=== PATIENT | female | born 1970 | race American Indian/Alaskan Native ===

== ENCOUNTER 2018-04-09 11:15 | Emergency (ER) | payer MEDICARE ==
[2018-04-09] MEDS ORDERED: ZOFRAN IV ONE (11:40)
[2018-04-09] MEDS ORDERED: MORPHINE IV ONE (11:41)
[2018-04-09] MEDS ORDERED: APRESOLINE IV ONE (11:42)
--- NOTE | 2018-04-09 11:46 | Emergency Department Report ---
ED Abdominal Pain HPI - General Stated Complaint: ABDOMINAL PAIN Time Seen by Provider: 04/09/18 11:40 - History of Present Illness Initial Comments: Patient is 47 years old female with history of hypertension and diabetes and left foot amputation in 2013. Patient presented to the ER complaining off diffuse abdominal pain. Patient stated that her pain is sharp in nature was no radiation. Pain associated with nausea but no vomiting. Patient denied any fever or urinary symptoms. MD Complaint: abdominal pain Location: diffuse Radiation: none Migration to: no migration Severity: moderate Quality: sharp - Related Data Allergies Allergy/AdvReac Type Severity Reaction Status Date / Time No Known Allergies Allergy Unverified 04/09/18 12:40 ED Review of Systems ROS: Stated complaint: ABDOMINAL PAIN Other details as noted in HPI Comment: All other systems reviewed and negative Constitutional: denies: chills, fever Respiratory: denies: cough, orthopnea, shortness of breath, SOB with exertion Gastrointestinal: abdominal pain, nausea. denies: vomiting, diarrhea, constipation, hematemesis, hematochezia Neurological: denies: headache, weakness, numbness, paresthesias, confusion ED Physical Exam - General Limitations: No Limitations General appearance: alert, in no apparent distress - Head Head exam: Present: atraumatic, normocephalic, normal inspection - Eye Eye exam: Present: normal appearance, PERRL - ENT ENT exam: Present: normal exam, normal orophraynx, mucous membranes moist - Neck Neck exam: Present: normal inspection, full ROM. Absent: tenderness, meningismus, lymphadenopathy, thyromegaly - Respiratory Respiratory exam: Present: normal lung sounds bilaterally. Absent: respiratory distress, wheezes, rales, rhonchi, stridor, chest wall tenderness, accessory muscle use, decreased breath sounds, prolonged expiratory - Cardiovascular Cardiovascular Exam: Present: regular rate, normal rhythm, normal heart sounds - GI/Abdominal GI/Abdominal exam: Present: soft, normal bowel sounds. Absent: distended, tenderness, guarding, rebound, rigid, organomegaly, mass, bruit, pulsatile mass - Extremities Exam Extremities exam: Present: normal inspection, full ROM, normal capillary refill - Back Exam Back exam: Present: normal inspection, full ROM. Absent: CVA tenderness (R), CVA tenderness (L), muscle spasm, paraspinal tenderness, vertebral tenderness, rash noted - Neurological Exam Neurological exam: Present: alert, oriented X3, CN II-XII intact, normal gait, reflexes normal - Skin Skin exam: Present: warm, intact, normal color ED Course Vital Signs 04/09/18 04/09/18 04/09/18 11:36 11:41 11:45 Temperature 97.6 F Pulse Rate 92 H 84 Respiratory 16 14 Rate Blood Pressure 221/105 215/95 222/107 O2 Sat by Pulse 99 97 Oximetry 04/09/18 04/09/18 04/09/18 12:01 12:15 12:31 Temperature Pulse Rate 85 83 84 Respiratory 20 21 20 Rate Blood Pressure 221/105 221/105 222/101 O2 Sat by Pulse 99 99 99 Oximetry 04/09/18 04/09/18 04/09/18 12:45 13:01 13:15 Temperature Pulse Rate 83 86 86 Respiratory 13 13 17 Rate Blood Pressure 222/101 215/95 236/130 O2 Sat by Pulse 99 97 97 Oximetry ED Medical Decision Making - Lab Data Result diagrams: 04/09/18 12:30 04/09/18 11:56 Critical care attestation.: If time is entered above; I have spent that time in minutes in the direct care of this critically ill patient, excluding procedure time. ED Disposition Clinical Impression: Abdominal pain, Malignant hypertension Disposition: DC-07 LEFT AGAINST MED ADVICE Is pt being admited?: No Condition: Stable Instructions: Abdominal Pain (ED), Hypertension (ED) Referrals: PRIMARY CARE, [Primary Care Provider] - 3-5 Days
[2018-04-09 12:34] LABS: Alanine Aminotransferase 11 units/L (7-56); Albumin 2.6 g/dL (3.9-5); BUN/Creatinine Ratio 9; Blood Urea Nitrogen 31 mg/dL (7-17); Calcium 8.5 mg/dL (8.4-10.2); Hemolysis Index 77; Lipase 106 units/L (13-60)
[2018-04-09 12:35] LABS: Bilirubin,Direct < 0.2 mg/dL (0-0.2)
[2018-04-09 13:18] VITALS: BP 236/130
[2018-04-09 13:31] LABS: Hematocrit 30.9 % (30.3-42.9); Hemoglobin 9.8 gm/dl (10.1-14.3); Mean Corpuscular HGB Conc 32 % (30-34); Mean Corpuscular Volume 76 fl (79-97); Platelet Count 507 K/mm3 (140-440); Red Blood Count 4.08 M/mm3 (3.65-5.03)
[2018-04-09 13:34] LABS: Mean Corpuscular Hemoglobin 24 pg (28-32)
[2018-04-09 14:18] LABS: Anisocytosis 1+; Band Neutrophils # (Manual) 0.1 K/mm3; Eosinophils % (Manual) 0 % (0.0-4.3); Hypochromasia 1+; Total Cells Counted 100
[2018-04-09 14:19] LABS: Platelet Estimate Cons
== END 2018-04-09 13:56 | disposition left against medical advice (07) ==
LOC: ED 11:15
DX: I10 Essential (primary) hypertension (principal); R10.30 Lower abdominal pain, unspecified; R11.0 Nausea
CPT/HCPCS: 36415; 80048; 80074; 82150; 83690; 85007; 85025; 99284; J0360; J2270; J2405